=== PATIENT | female | born 1980 | race Caucasian/White ===

== ENCOUNTER 2016-08-25 08:18 | Day surgery (SDC) | payer BC ==
[~2016-08-25] VITALS: Ht 170.2 cm; Wt 55.3 kg
[2016-08-25 09:34] VITALS: Ht 170.2 cm; Wt 55.3 kg
[2016-08-25 09:51] VITALS: BP 108/70; PULSE 74; RESP 18
[2016-08-25] MEDS ORDERED: PROPOFOL 40 ML ONE ×2 (10:00→10:43)
[2016-08-25] MEDS ORDERED: LIDOCAINE 2% (SDV) 5 ML INJ ONE (10:00)
[2016-08-25] MEDS ORDERED: GLUCAGON 1 MG INJ ONE (10:35)
[2016-08-25] MEDS ORDERED: EPINEPHrine 0.1 MG/ML SYG ONE (11:47)
[2016-08-25 12:00] VITALS: BP 103/66; PULSE 66; RESP 18
--- NOTE | 2016-08-25 18:06 | GILP ---
DATE OF PROCEDURE: 08/25/2016 PROCEDURE PERFORMED: Colonoscopy with epinephrine injection and biopsy. INDICATION: A 35-year-old female with known polyp undergoing the procedure for a possible removal. The risk of the procedure, related and unrelated complications, anesthetic risks, alternatives disc ussed and informed consent was obtained. DESCRIPTION OF PROCEDURE: The patient was brought to the GI lab, sedated by the anesthesiologist, s cope was passed with much ease into the rectum and advanced slowly at 40 cm. While going in, the la rge polyp was identified. Scope was advanced all the way into the cecum. Appendix was identified. IC valve was identified. Rest of the colon was normal. While coming out, the Martinez thoroughly ins pected. Glucagon was given. There appeared to be a thick small stalk but the stalk also had a poly p somewhat extending into that. It was not clear cut whether the stalk was completely spared at the base or not. We injected epinephrine 1:10,000 hoping to reduce the vascularities so that we can ta ke a biopsy in case we have to a polypectomy. The polyp was pretty big more than 5 cm in length, c auliflower in appearance. Took a biopsy from the summit of the polyp and also from the base but the n I did a biopsy from the base. The patient started oozing. At that point decided to inject epinep hrine 1:10,000. The epinephrine was injected and bleeding completely stopped. A total of 4 to 5 bi opsies obtained. Scope was removed with good patient tolerance. Now looking at the size of polyp. Though, there is a questionable small stalk and adenomatous tissue extending into the stalk, I pers onally feel that she should go for surgery. If patient has even carcinoma in situ or induration of the lymphatics, she is too young and technically difficult to truly cut off sawyer the pathological findings. The best option is to aim for the cure by removing that segment of the polyp laparoscopically. Dictated By: KIRBY BLOOM/LESVIA Conf#: [id number] DID#: [id number]
== END 2016-08-25 16:04 | disposition home or self-care (01) ==
LOC: GIL 08:18
PROVIDERS: ATTEND Internal Medicine Gastroenterology
DX: D12.5 Benign neoplasm of sigmoid colon (principal); F41.9 Anxiety disorder, unspecified
CPT/HCPCS: 45380; 45381; 84703; 88305; J0171; J1610; Z7610